=== PATIENT | female | born 1985 | race Two or more races ===

== ENCOUNTER 2023-01-21 08:27 | Outpatient (CLI) | payer OTHER | END 2023-01-21 08:28 | disposition home or self-care (01) | LOC: LAB 08:27 | PROVIDERS: ATTEND Internal Medicine Hematology & Oncology | DX: D50.8 Other iron deficiency anemias (principal); R79.9 Abnormal finding of blood chemistry, unspecified; I10 Essential (primary) hypertension; R74.02 Elevation of levels of lactic acid dehydrogenase [LDH]; K76.89 Other specified diseases of liver; D63.8 Anemia in other chronic diseases classified elsewhere; D55.0 Anemia due to glucose-6-phosphate dehydrogenase [G6PD] deficiency; D51.1 Vitamin B12 deficiency anemia due to selective vitamin B12 malabsorption with proteinuria; D51.0 Vitamin B12 deficiency anemia due to intrinsic factor deficiency; E03.8 Other specified hypothyroidism; E06.3 Autoimmune thyroiditis; D72.818 Other decreased white blood cell count ==

== ENCOUNTER 2023-01-21 09:02 | Outpatient (CLI) | payer OTHER | END 2023-01-21 09:09 | disposition home or self-care (01) | LOC: SONOGRAMA 09:02 | PROVIDERS: ATTEND Internal Medicine Hematology & Oncology | DX: E04.2 Nontoxic multinodular goiter (principal) ==

== ENCOUNTER 2023-07-11 08:40 | Outpatient (CLI) | payer OTHER ==
[2023-07-11 09:50] LABS: HEMATOCRIT 38.2 % (36.0-45.00); HEMOGLOBIN 13.2 g/dL (12.0-15.00); MEAN CELL VOLUME 86.6 fL (80.00-100.00); MEAN CORPUSCULAR HEMOGLOBIN 29.9 pg (27.00-32.0); MEAN CORPUSCULAR HGB CONC 34.5 g/dl (32.0-36.0); PLATELET COUNT 252 K/uL (150-450); RED BLOOD COUNT 4.41 M/uL (4.00-6.00); RED CELL DISTRIBUTION WIDTH 13.3 % (11.5-14.5)
[2023-07-11 10:17] LABS: ALBUMIN 4.1 gm/dL (3.4-5.0); BILIRUBIN TOTAL 0.53 mg/dL (0.3-1.2); CALCIUM 8.9 mg/dL (8.5-10.1); CREATININE SERUM 0.67 mg/dL (0.55-1.02); GFR 98.5; GLOBULINA 3.5 G/DL (2.4-3.5); POTASSIUM 3.55 mEq/L (3.5-5.1); TOTAL PROTEIN 7.6 gm/dL (6.4-8.2)
[2023-07-11 10:45] LABS: FOLIC ACID 19.28 ng/ml (4.78-20)
[2023-07-11 13:17] LABS: MANUAL PLATELET COUNT 476
[2023-07-11 13:19] LABS: PLATELET ESTIMATE INCREASED (NORMAL)
[2023-07-12 10:11] LABS: COMPLEMENT C3 112 mg/dL (82-167); COMPLEMENT C4 23 mg/dL (12-38)
[2023-07-12 16:06] LABS: ANTI JO 1 < 0.2 AI (0.0-0.9); ANTI SCLERODERMA 70 < 0.2 AI (0.0-0.9); CYCLIC CITRULLINE PEPTIDE 5 units (0-19); DNA AB DOUBLE STRABDED 2 IU/mL (0-9); rnp < 0.2 AI (0.0-0.9); sjogrens ssa 0.2 AI (0.0-0.9); sjogrens ssb < 0.2 AI (0.0-0.9); smith ab < 0.2 AI (0.0-0.9)
== END 2023-07-11 13:50 | disposition home or self-care (01) ==
LOC: LAB 08:40
PROVIDERS: ATTEND Internal Medicine Hematology & Oncology
DX: D72.818 Other decreased white blood cell count (principal); D51.3 Other dietary vitamin B12 deficiency anemia; D51.1 Vitamin B12 deficiency anemia due to selective vitamin B12 malabsorption with proteinuria; E04.1 Nontoxic single thyroid nodule